=== PATIENT | female | born 1965 | race American Indian/Alaskan Native ===

== ENCOUNTER 2017-11-07 10:37 | Emergency (ER) | payer MEDICAID ==
--- NOTE | 2017-11-07 13:56 | Emergency Department Report ---
Blank Doc - Documentation Documentation: 52-year-old female with no significant past medical history previous CVA in 2014 and brain surgery secondary AVM and 2011 in [facility] presents to hospital complaining of intermittent pressure behind both eyes for the past 2 days. Headache/pressure with intermittent and without aggravating or relieving factors. Taken Motrin and Tylenol intermittently with some relief. She denies nausea, vomiting, blurry vision, focal weakness, focal numbness, fever, or neck pain. Patient denies headache currently. Patient also had intermittent fluttering and feeling like she has to take a deep breath for air. She denies chest pain Patient does not have pain NIH stroke scale 0 EKG normal sinus rate [address] elevation or T-wave inversions. Visual acuity ordered CT head pending Mid-level to follow
--- NOTE | 2017-11-07 16:05 | Emergency Department Report ---
ED Headache HPI - General Chief Complaint: Dizziness Stated Complaint: LIGHT HEADED/SOB Time Seen by Provider: 11/07/17 13:45 Source: patient Exam Limitations: no limitations - History of Present Illness Initial Comments: 52-year-old female with no significant past medical history previous CVA in 2013 and brain surgery secondary AVM and 2011 in [facility] presents to hospital complaining of intermittent pressure behind both eyes for the past 2 days. Headache/pressure with intermittent and without aggravating or relieving factors. Taken Motrin and Tylenol intermittently with some relief. She denies nausea, vomiting, blurry vision, focal weakness, focal numbness, fever, or neck pain. Patient denies headache currently. Patient also had intermittent fluttering and feeling like she has to take a deep breath for air. She denies chest pain Allergies/Adverse Reactions: Allergies No Known Allergies Allergy (Unverified 11/07/17 10:44) Home Medications: Ambulatory Orders Ibuprofen [Motrin] 800 mg PO Q8HR PRN #30 tablet 11/07/17 ED Review of Systems ROS: Stated complaint: LIGHT HEADED/SOB Other details as noted in HPI Comment: All other systems reviewed and negative ED Past Medical Hx - Past Medical History Hx CVA: Yes (2013) - Surgical History Additional Surgical History: Brain surgery, AVM 2013 - Social History Smoking Status: Never Smoker Substance Use Type: None - Medications Home Medications: Home Medications Medication Instructions Recorded Confirmed Last Taken Type Ibuprofen [Motrin] 800 mg PO Q8HR PRN #30 tablet 11/07/17 Unknown Rx ED Physical Exam - General Limitations: No Limitations - Other Other exam information: General: No limitations, patient is alert in no acute distress Head exam: Atraumatic, normocephalic Eyes exam: Normal appearance, pupils equal reactive to light, extraocular movements intact ENT: Moist mucous membrane, normal oropharynx Neck exam: Normal inspection, full range of motion, no meningismus nontender Respiratory exam: Clear to auscultation bilateral, no wheezes, rales, crackles Cardiovascular: Normal rate and rhythm, normal heart sounds Abdomen: Soft, nondistended, and nontender, with normal bowel sounds, no rebound, or guarding Extremity: Full range of motion normal inspection no deformity Back: Normal Inspection, full range of motion, no tenderness Neurologic: Alert, oriented x3, cranial nerves intact, no motor or sensory deficit. NIH stroke scale 0 Psychiatric: normal affect, normal mood Skin: Warm, dry, intact ED Course Vital Signs 11/07/17 11/07/17 10:44 16:13 Temperature 98 F Pulse Rate 80 53 L Respiratory 16 20 Rate Blood Pressure 157/85 Blood Pressure 159/81 [Right] O2 Sat by Pulse 100 100 Oximetry ED Medical Decision Making - EKG Data -: EKG Interpreted by Me EKG shows normal: sinus rhythm, axis (qrs 31), QRS complexes (qrsd 89), ST-T waves (no stemi/t inv) Rate: normal (83) - EKG Data When compared to previous EKG there are: previous EKG unavailable - Radiology Data Radiology results: report reviewed CT head without contrast: Current complaints are retro-orbital pain. History of prior AVM surgery. Axial images demonstrates a craniotomy site in the left posterior occipital region. There is underlying inhomogeneous hypodensity in the parenchyma consistent with surgical site. There is hypodensity in the sella. The intracranial anatomy and findings are generally otherwise unremarkable. No other evidence of focal finding, hemorrhage, mass effect, or ventricular abnormality identified. The visualized paranasal sinuses are also unremarkable. Impression: 1. Suspect empty sella. 2. Findings consistent with prior left posterior parietal surgery. - Medical Decision Making Headache CT does not show any acute findings. Postoperative changes noted Asymptomatic currently Will be instructed to continue ibuprofen or Tylenol as needed for pain pt remains asymptomatic in the ED Palpitations Intermittent fluttering reported associated with feeling a little short of breath Nonexertional EKG normal, pulse ox normal She'll be discharged to follow up with primary care doctor and neurologist - Differential Diagnosis migraine, tension headache, AVM, ICH, mass Critical Care Time: No Critical care attestation.: If time is entered above; I have spent that time in minutes in the direct care of this critically ill patient, excluding procedure time. ED Disposition Clinical Impression: Headache, Hx of arteriovenous malformation (AVM) Disposition: DC-01 TO HOME OR SELFCARE Is pt being admited?: No Does the pt Need Aspirin: No Condition: Stable Instructions: Acute Headache (ED) Additional Instructions: Take the medication as prescribed. Follow up with your doctor. Return if symptoms worsen as indicated by your discharge instructions Prescriptions: Ibuprofen [Motrin] 800 mg PO Q8HR PRN #30 tablet PRN Reason: Pain, Moderate (4-6) Referrals: [facility] [Provider Group] - 3-5 Days (Primary care clinic) CAITY EMERY MD [Staff Physician] - 3-5 Days (Primary care doctor) WHITNEY TAMEZ MD [Staff Physician] - 3-5 Days (Neurologist) Time of Disposition: 16:21 - Assessment Assessment Interval: Baseline - Level of Consciousness 1a. Level of Consciousness: alert - LOC Questions 1b. LOC Questions: answers correctly - LOC Command 1c. LOC Commands: performs tasks correctly - Best Gaze 2. Best Gaze: normal - Visual 3. Visual: no visual loss - Facial Palsy 4. Facial Palsy: normal symmetrical movement - Motor Arm 5b. Motor Arm Right: no drift 5a. Motor Arm Left: no drift - Motor Leg 6a. Motor Leg Left: no drift 6b. Motor Leg Right: no drift - Limb Ataxia 7. Limb Ataxia: absent - Sensory 8. Sensory: normal - Best Language 9. Best Language: no aphasia - Dysarthria 10. Dysarthria: normal - Extinction and Inattention 11. Extinction/Inattention: no abnormality - Scoring Total Score: 0 Stroke Severity: No Stroke Symptoms
--- NOTE | 2017-11-07 16:08 | Cat Scan Report ---
CT head without contrast: Current complaints are retro-orbital pain. History of prior AVM surgery. Axial images demonstrates a craniotomy site in the left posterior occipital region. There is underlying inhomogeneous hypodensity in the parenchyma consistent with surgical site. There is hypodensity in the sella. The intracranial anatomy and findings are generally otherwise unremarkable. No other evidence of focal finding, hemorrhage, mass effect, or ventricular abnormality identified. The visualized paranasal sinuses are also unremarkable. Impression: 1. Suspect empty sella. 2. Findings consistent with prior left posterior parietal surgery.
[2017-11-07 16:14] VITALS: BP 159/81
== END 2017-11-07 16:25 | disposition home or self-care (01) ==
LOC: ED 10:37
DX: R51 Headache (principal); R42 Dizziness and giddiness; Z87.74 Personal history of (corrected) congenital malformations of heart and circulatory system; Z86.73 Personal history of transient ischemic attack (TIA), and cerebral infarction without residual deficits
CPT/HCPCS: 70450; 93005; 93010; 99283